=== PATIENT | female | born 2000 | race Caucasian/White ===

== ENCOUNTER 2023-02-04 18:23 | Emergency (ER) | payer SELFPAY | END 2023-02-04 19:20 | disposition home or self-care (01) | LOC: MW.ED 18:23 | DX: L03.114 Cellulitis of left upper limb (principal); J45.909 Unspecified asthma, uncomplicated; Z86.16 Personal history of COVID-19; Z88.0 Allergy status to penicillin; Z79.899 Other long term (current) drug therapy | CPT/HCPCS: 99282; 99283 ==

== ENCOUNTER 2023-03-15 14:02 | Emergency (ER) | payer SELFPAY ==
[2023-03-15] MEDS ORDERED: Sodium Chloride 0.9% 1,000 ML IV ONE (16:39)
== END 2023-03-15 17:00 | disposition home or self-care (01) ==
LOC: MW.ED 14:02
DX: L29.9 Pruritus, unspecified (principal); J45.909 Unspecified asthma, uncomplicated; Z86.16 Personal history of COVID-19; Z88.0 Allergy status to penicillin
CPT/HCPCS: 99282; 99283

== ENCOUNTER 2023-10-01 11:55 | Emergency (ER) | payer MEDICAID ==
[2023-10-01 12:35] LABS: AMPHETAMINES SCREEN, URINE NEGATIVE (CUTOFF=500); BARBITURATE SCREEN,URINE NEGATIVE (CUTOFF=200); BENZODIAZEPINES SCREEN,URINE NEGATIVE (CUTOFF=150); BUPRENORPHINE SCREEN,URINE NEGATIVE (CUTOFF=10); METHADONE SCREEN, URINE NEGATIVE (CUTOFF=200); METHAMPHETAMINES SCREEN, URINE NEGATIVE (CUTOFF=500); OXYCODONE SCREEN,URINE NEGATIVE (CUT0FF=100); PCP SCREEN,URINE NEGATIVE (CUTOFF=25); THC SCREEN,URINE 20 NG/ML PRESUMPTIVE POSITIVE (CUTOFF=50)
[2023-10-01] MEDS: Sodium Chloride 0.9% 1,000 ML IV ONE ×2 (13:08)
[2023-10-01] MEDS: Ketorolac 30 MG/ML SDV IVPUSH ONE ×2 (13:09→14:28)
[2023-10-01 13:18] LABS: BASOPHILS ABSOLUTE AUTO 0.02 K/uL (0.00-0.20); BASOPHILS PERCENT AUTO 0.2 % (0.0-1.0); EOSINOPHILS PERCENT AUTO 3.2 % (0.0-6.0); HEMATOCRIT 40.5 % (37.0-47.0); HEMOGLOBIN 13.8 g/dL (12.0-16.0); IMMATURE GRAN ABSOLUTE AUTO 0.02 K/uL (0.00-0.05); IMMATURE GRAN PERCENT AUTO 0.2 % (0.0-0.4); LYMPHOCYTES ABSOLUTE AUTO 1.63 K/uL (1.00-4.80); LYMPHOCYTES PERCENT AUTO 17.2 % (24.0-44.0); MEAN CORPUSCULAR HEMOGLOBIN 28.2 pg (28.0-32.0); MEAN CORPUSCULAR HGB CONC 34.1 g/dL (32.0-36.0); MEAN CORPUSCULAR VOLUME 82.8 fL (83.0-99.0); MEAN PLATELET VOLUME 11.7 fL (9.4-12.3); MONOCYTES ABSOLUTE AUTO 0.58 K/uL (0.00-0.80); MONOCYTES PERCENT AUTO 6.1 % (0.0-8.0); NEUTROPHILS ABSOLUTE AUTO 6.91 K/uL (1.80-7.70); NEUTROPHILS PERCENT AUTO 73.1 % (41.0-71.0); PLATELET COUNT,PLT 252 K/uL (150-400); RED BLOOD CELL COUNT 4.89 M/uL (4.10-5.30); WHITE BLOOD CELL COUNT,WBC 9.46 K/uL (3.9-11.3)
[2023-10-01 13:54] LABS: A/G RATIO 1.1 (0.9-1.6); ALBUMIN 4.1 g/dL (3.4-5.0); BILIRUBIN TOTAL 0.7 mg/dL (0.2-1.0); CALCIUM 9.3 mg/dL (8.5-10.1); CARBON DIOXIDE,CO2 27.4 mmol/L (21.0-32.0); CREATININE 0.8 mg/dL (0.6-1.0); EST CRCL DRUG DOSING (CG) 106.36 mL/min; POTASSIUM,K 3.9 mmol/L (3.5-5.1); PROTEIN TOTAL,TP 7.9 g/dL (6.4-8.2); TSH ULTRASENSITIVE 0.72 uIU/mL (0.36-3.74)
[2023-10-01] MEDS: diphenhydrAMINE 50 MG/ML SDV IVPUSH ONE (14:28)
[2023-10-01] MEDS: Metoclopramide 10 MG/2 ML SDV IVPUSH ONE (14:28)
== END 2023-10-01 15:19 | disposition home or self-care (01) ==
LOC: MW.ED 11:55
DX: R42 Dizziness and giddiness (principal); R51.9 Headache, unspecified; Z75.8 Other problems related to medical facilities and other health care; Z88.0 Allergy status to penicillin
CPT/HCPCS: 36415; 80053; 80305; 81025; 83690; 84443; 85025; 93005; 96374; 96375; 96376; 99284; J1200; J1885; J2765; J7030; 93010

== ENCOUNTER 2023-12-19 16:11 | Emergency (ER) | payer BC, MEDICAID ==
[2023-12-19] MEDS: Cefdinir 300 MG Cap PO STA (18:20)
[2023-12-19] MEDS: traMADol 50 MG Tab PO STA (18:20)
== END 2023-12-19 18:22 | disposition home or self-care (01) ==
LOC: MW.ED 16:11
DX: H93.92 Unspecified disorder of left ear (principal); J45.909 Unspecified asthma, uncomplicated; Z88.0 Allergy status to penicillin; Z86.16 Personal history of COVID-19; Z75.8 Other problems related to medical facilities and other health care
CPT/HCPCS: 99282; A9270; 99283

== ENCOUNTER 2024-01-03 20:00 | Emergency (ER) | payer BC, MEDICAID ==
[2024-01-03 20:21] LABS: EOSINOPHILS ABSOLUTE AUTO 0.01 K/uL (0.00-0.45); EOSINOPHILS PERCENT AUTO 0.1 % (0.0-6.0); HEMATOCRIT 39.7 % (37.0-47.0); HEMOGLOBIN 13.4 g/dL (12.0-16.0); IMMATURE GRAN ABSOLUTE AUTO 0.01 K/uL (0.00-0.05); IMMATURE GRAN PERCENT AUTO 0.1 % (0.0-0.4); LYMPHOCYTES ABSOLUTE AUTO 1.98 K/uL (1.00-4.80); LYMPHOCYTES PERCENT AUTO 27.7 % (24.0-44.0); MEAN CORPUSCULAR HEMOGLOBIN 27.9 pg (28.0-32.0); MEAN CORPUSCULAR HGB CONC 33.8 g/dL (32.0-36.0); MEAN CORPUSCULAR VOLUME 82.7 fL (83.0-99.0); MEAN PLATELET VOLUME 10.9 fL (9.4-12.3); MONOCYTES ABSOLUTE AUTO 0.46 K/uL (0.00-0.80); MONOCYTES PERCENT AUTO 6.4 % (0.0-8.0); NEUTROPHILS ABSOLUTE AUTO 4.68 K/uL (1.80-7.70); NEUTROPHILS PERCENT AUTO 65.7 % (41.0-71.0); PLATELET COUNT,PLT 236 K/uL (150-400); WHITE BLOOD CELL COUNT,WBC 7.14 K/uL (3.9-11.3)
[2024-01-03] MEDS: Ondansetron 4 MG/2 ML SDV IVPUSH ONE (20:21)
[2024-01-03] MEDS: Sodium Chloride 0.9% 1,000 ML IV ONE (20:21)
[2024-01-03] MEDS: Ketorolac 30 MG/ML SDV IVPUSH ONE (20:21)
[2024-01-03] MEDS: Meclizine 25 MG Tab PO ONE (20:21)
[2024-01-03 20:45] LABS: A/G RATIO 1.4 (0.9-1.6); ALBUMIN 4.3 g/dL (3.4-5.0); BILIRUBIN TOTAL 0.7 mg/dL (0.2-1.0); CALCIUM 9.2 mg/dL (8.5-10.1); CARBON DIOXIDE,CO2 27.4 mmol/L (21.0-32.0); CREATININE 0.9 mg/dL (0.6-1.0); EST CRCL DRUG DOSING (CG) 94.54 mL/min; PROTEIN TOTAL,TP 7.3 g/dL (6.4-8.2)
[2024-01-03] MEDS: Acetaminophen 500 MG Tab PO ONE (21:38)
== END 2024-01-03 21:42 | disposition home or self-care (01) ==
LOC: MW.ED 20:00
DX: R42 Dizziness and giddiness (principal); Z86.16 Personal history of COVID-19; Z88.0 Allergy status to penicillin; Z75.8 Other problems related to medical facilities and other health care
CPT/HCPCS: 36415; 80053; 85025; 96361; 96374; 96375; 99283; A9270; J1885; J2405; J7030; 99284

== ENCOUNTER 2024-03-21 10:18 | Emergency (ER) | payer MEDICAID ==
[2024-03-21] MEDS ORDERED: Sodium Chloride 0.9% 2.5 ML Syringe FLUSH PRN (10:32)
[2024-03-21] MEDS: Sodium Chloride 0.9% 10 ML Syringe FLUSH PRN (10:42)
[2024-03-21] MEDS: Metoclopramide 10 MG/2 ML SDV IVPUSH ONE (10:42)
[2024-03-21] MEDS: Ketorolac 30 MG/ML SDV IVPUSH ONE (10:42)
[2024-03-21] MEDS: diphenhydrAMINE 50 MG/ML SDV IVPUSH ONE (10:42)
[2024-03-21] MEDS: Sodium Chloride 0.9% 1,000 ML IV ONE (10:42)
== END 2024-03-21 12:09 | disposition home or self-care (01) ==
LOC: MW.ED 10:18
DX: G43.909 Migraine, unspecified, not intractable, without status migrainosus (principal); J45.909 Unspecified asthma, uncomplicated; Z88.0 Allergy status to penicillin
CPT/HCPCS: 96361; 96374; 96375; 99283; J1200; J1885; J2765; J3490; J7030; 99284

== ENCOUNTER 2024-05-18 08:43 | Emergency (ER) | payer SELFPAY | END 2024-05-18 09:53 | disposition home or self-care (01) | LOC: MW.ED 08:43 | DX: S90.31XA Contusion of right foot, initial encounter (principal); J45.909 Unspecified asthma, uncomplicated; Z90.89 Acquired absence of other organs; Z88.0 Allergy status to penicillin; Z79.899 Other long term (current) drug therapy; W20.8XXA Other cause of strike by thrown, projected or falling object, initial encounter | CPT/HCPCS: 73620-26-RT; 73620-RT; 99283 ==

== ENCOUNTER 2024-06-15 14:17 | Emergency (ER) | payer SELFPAY ==
[2024-06-15] MEDS: methylPREDNISolone Sodium Succinate 125 MG/2 ML SDV IVPUSH ONE (14:36)
[2024-06-15 14:44] LABS: HEMATOCRIT 37.1 % (37.0-47.0); HEMOGLOBIN 12.7 g/dL (12.0-16.0); IMMATURE GRAN ABSOLUTE AUTO 0.01 K/uL (0.00-0.05); IMMATURE GRAN PERCENT AUTO 0.2 % (0.0-0.4); LYMPHOCYTES ABSOLUTE AUTO 1.61 K/uL (1.00-4.80); LYMPHOCYTES PERCENT AUTO 36.8 % (24.0-44.0); MEAN CORPUSCULAR HGB CONC 34.2 g/dL (32.0-36.0); MEAN CORPUSCULAR VOLUME 81.7 fL (83.0-99.0); MEAN PLATELET VOLUME 11.6 fL (9.4-12.3); MONOCYTES PERCENT AUTO 6.9 % (0.0-8.0); NEUTROPHILS ABSOLUTE AUTO 2.45 K/uL (1.80-7.70); NEUTROPHILS PERCENT AUTO 56.1 % (41.0-71.0); PLATELET COUNT,PLT 209 K/uL (150-400); RED BLOOD CELL COUNT 4.54 M/uL (4.10-5.30); WHITE BLOOD CELL COUNT,WBC 4.37 K/uL (3.9-11.3)
[2024-06-15] MEDS: Sodium Chloride 0.9% 1,000 ML IV ONE (15:02)
[2024-06-15 15:09] LABS: A/G RATIO 1.2 (0.9-1.6); ALBUMIN 3.8 g/dL (3.4-5.0); BILIRUBIN TOTAL 0.5 mg/dL (0.2-1.0); CALCIUM 8.5 mg/dL (8.5-10.1); CARBON DIOXIDE,CO2 27.1 mmol/L (21.0-32.0); CREATININE 0.8 mg/dL (0.6-1.0); EST CRCL DRUG DOSING (CG) 105.45 mL/min; POTASSIUM,K 3.8 mmol/L (3.5-5.1); PROTEIN TOTAL,TP 6.9 g/dL (6.4-8.2)
[2024-06-15] MEDS: Iopamidol 755 MG/ML 500 ML Multipack Bottle IVPUSH STA (15:49)
== END 2024-06-15 17:49 | disposition home or self-care (01) ==
LOC: MW.ED 14:17
DX: R07.9 Chest pain, unspecified (principal); Z90.49 Acquired absence of other specified parts of digestive tract; Z79.899 Other long term (current) drug therapy; Z88.0 Allergy status to penicillin; Z75.8 Other problems related to medical facilities and other health care
CPT/HCPCS: 36415; 71275; 80053; 84484; 84703; 85025; 93005; 96361; 96374; 99285; J2919; J7030; Q9967

== ENCOUNTER 2025-01-16 16:39 | Emergency (ER) | payer SELFPAY ==
[2025-01-16 17:35] LABS: APPEARANCE,URINE CLEAR; GLUCOSE,URINE NEGATIVE (NEGATIVE); OCCULT BLOOD,URINE NEGATIVE (NEGATIVE)
[2025-01-16] MEDS ORDERED: Sodium Chloride 0.9% 2.5 ML Syringe FLUSH PRN (18:47)
[2025-01-16] MEDS ORDERED: Sodium Chloride 0.9% 10 ML Syringe FLUSH PRN (18:47)
[2025-01-16] MEDS: diphenhydrAMINE 50 MG/ML SDV IVPUSH ONE (19:08)
[2025-01-16] MEDS: Orphenadrine 60 MG/2 ML Inj IV ONE (19:08)
[2025-01-16] MEDS: Ketorolac 30 MG/ML SDV IVPUSH ONE (19:08)
[2025-01-16] MEDS: Ondansetron 4 MG/2 ML SDV IVPUSH ONE (19:08)
== END 2025-01-16 20:26 | disposition home or self-care (01) ==
LOC: MW.ED 16:39
DX: G43.909 Migraine, unspecified, not intractable, without status migrainosus (principal); G44.209 Tension-type headache, unspecified, not intractable; J45.909 Unspecified asthma, uncomplicated; Z79.899 Other long term (current) drug therapy; Z88.1 Allergy status to other antibiotic agents; Z90.49 Acquired absence of other specified parts of digestive tract
CPT/HCPCS: 70450; 81003; 81025; 96361; 96374; 96375; 99284; J1200; J1885; J2360; J2405; J7030; 99283